=== PATIENT | female | born 1980 | race Caucasian/White ===

== ENCOUNTER 2023-02-18 06:48 | Day surgery (SDC) | payer BC ==
[2023-02-16 16:30] VITALS: BMI 33.9
[2023-02-18] MEDS ORDERED: BUPIVACAINE HCL/EPINEPHRINE/PF 30 ML VIAL IJ ONE (07:11)
[2023-02-18] MEDS ORDERED: EPINEPHrine 1:1,000 1,000 MCG/ML ML ONE (07:12)
[2023-02-18] MEDS ORDERED: VANCOMYCIN 1,000 MG VIAL (RESTRICTED TO ID ONLY) ONE (07:42)
[2023-02-18] MEDS ORDERED: ROPIVACAINE HCL 0.5% 30ML VIAL ONE (08:35)
[2023-02-18] MEDS ORDERED: MIDAZOLAM HCL 2 MG/2 ML SINGLE DOSE VIAL ONE ×2 (08:35→09:18)
[2023-02-18] MEDS ORDERED: DEXAMETHASONE SOD PHOSPHATE/PF 10 MG/ML SDV ONE (08:35)
[2023-02-18] MEDS ORDERED: FENTANYL CITRATE/PF 50 MCG/ML VIAL ONE (08:35)
[2023-02-18] MEDS ORDERED: PROPOFOL 60 ML ONE (09:11)
[2023-02-18] MEDS ORDERED: oxyCODONE HCL 5 MG TABLET PO PRN ×2 (11:28)
[2023-02-18] MEDS ORDERED: ACETAMINOPHEN 1000 MG/100 ML BAG IVPB ONE (11:28)
[2023-02-18] MEDS ORDERED: LACTATED RINGERS SOLUTION 1,000 ML IV SCH (11:30)
[2023-02-18 12:19] VITALS: RESP 20; TEMP 97.5
[2023-02-18 13:58] VITALS: BP 110/68; PULSE 74
== END 2023-02-18 12:55 | disposition home or self-care (01) ==
LOC: FASU 06:48
PROVIDERS: ATTEND Orthopaedic Surgery
PROC: 0RCJ4ZZ Extirpation of Matter from Right Shoulder Joint, Percutaneous Endoscopic Approach (ICD-10-PCS; 2023-02-18)
PROC: 0JBD0ZZ Excision of Right Upper Arm Subcutaneous Tissue and Fascia, Open Approach (ICD-10-PCS; 2023-02-18)
PROC: 0RBJ4ZZ Excision of Right Shoulder Joint, Percutaneous Endoscopic Approach (ICD-10-PCS; principal; 2023-02-18 09:34)
DX: T81.49XA Infection following a procedure, other surgical site, initial encounter (principal); T81.89XA Other complications of procedures, not elsewhere classified, initial encounter; M01.X11 Direct infection of right shoulder in infectious and parasitic diseases classified elsewhere; Y83.8 Other surgical procedures as the cause of abnormal reaction of the patient, or of later complication, without mention of misadventure at the time of the procedure; Y92.9 Unspecified place or not applicable
CPT/HCPCS: 81025; 88300-TC; 88304-TC; 94760

== ENCOUNTER 2023-05-24 10:36 | Day surgery (SDC) | payer BC ==
[2023-05-21 12:28] VITALS: BMI 33.9
[2023-05-24] MEDS ORDERED: PROPOFOL 20 ML ONE (12:59)
[2023-05-24] MEDS ORDERED: ONDANSETRON 4 MG/2 ML VIAL ONE ×2 (12:59→14:36)
[2023-05-24] MEDS ORDERED: MIDAZOLAM HCL 2 MG/2 ML SINGLE DOSE VIAL ONE ×2 (12:59→13:58)
[2023-05-24] MEDS ORDERED: DEXAMETHASONE SOD PHOSPHATE 4 MG/1 ML VIAL ONE ×2 (12:59→14:36)
[2023-05-24] MEDS ORDERED: ROCURONIUM BROMIDE 50 MG/5 ML SYRINGE ONE (13:08)
[2023-05-24] MEDS ORDERED: VANCOMYCIN 1,000 MG VIAL (RESTRICTED TO ID ONLY) ONE (13:09)
[2023-05-24] MEDS ORDERED: SCOPOLAMINE HYDROBROMIDE 1 PATCH PATCH.TD72 ONE (14:18)
[2023-05-24] MEDS ORDERED: BUPIVACAINE HCL/PF 2.5 MG/ML - 30 ML VIAL IJ ONE (14:20)
[2023-05-24] MEDS ORDERED: oxyCODONE HCL 5 MG TABLET PO PRN ×2 (14:58)
[2023-05-24] MEDS ORDERED: ONDANSETRON 4 MG/2 ML VIAL IVPUSH PRN (14:58)
[2023-05-24] MEDS ORDERED: LACTATED RINGERS SOLUTION 1,000 ML IV SCH (15:00)
[2023-05-24] MEDS ORDERED: ACETAMINOPHEN 1000 MG/100 ML BAG IVPB ONE (15:01)
[2023-05-24 16:32] VITALS: PULSE 62; RESP 20; TEMP 97.7
[2023-05-24 16:38] VITALS: BP 104/62
== END 2023-05-24 16:20 | disposition home or self-care (01) ==
LOC: FASU 10:36
PROVIDERS: ATTEND Orthopaedic Surgery
PROC: 0JBD0ZZ Excision of Right Upper Arm Subcutaneous Tissue and Fascia, Open Approach (ICD-10-PCS; principal; 2023-05-24 14:22)
DX: L02.413 Cutaneous abscess of right upper limb (principal)
CPT/HCPCS: 81025; 87070; 87102; 87116; 87186; 87205; 87206; 87210; 88304-TC; 94760

== ENCOUNTER 2023-07-14 07:47 | Day surgery (SDC) | payer BC ==
[2023-07-09 10:09] VITALS: BMI 33.9
[2023-07-14] MEDS ORDERED: MIDAZOLAM HCL 2 MG/2 ML SINGLE DOSE VIAL ONE (10:07)
[2023-07-14] MEDS ORDERED: SCOPOLAMINE HYDROBROMIDE 1 PATCH PATCH.TD72 ONE (10:07)
[2023-07-14] MEDS ORDERED: ACETAMINOPHEN INJECTION 100 ML IVPB ONE (10:07)
[2023-07-14] MEDS ORDERED: oxyCODONE HCL 5 MG TABLET PO PRN (10:16)
[2023-07-14] MEDS ORDERED: ACETAMINOPHEN 325 MG TABLET (FP) PO PRN (10:16)
[2023-07-14] MEDS ORDERED: ONDANSETRON 4 MG/2 ML VIAL IVPUSH PRN (10:16)
[2023-07-14] MEDS ORDERED: LACTATED RINGERS SOLUTION 1,000 ML IV SCH (10:30)
[2023-07-14] MEDS ORDERED: PROPOFOL 20 ML ONE (10:30)
[2023-07-14] MEDS ORDERED: KETOROLAC TROMETHAMINE 30 MG/1 ML VIAL ONE (10:39)
[2023-07-14] MEDS ORDERED: DEXAMETHASONE SOD PHOSPHATE 4 MG/1 ML VIAL ONE (10:39)
[2023-07-14] MEDS ORDERED: TRANEXAMIC ACID 1000 MG/10 ML VIAL ONE (11:12)
[2023-07-14] MEDS ORDERED: FENTANYL CITRATE/PF 50 MCG/ML VIAL ONE (11:46)
[2023-07-14] MEDS: ONDANSETRON 4 MG/2 ML VIAL ONE (11:49)
[2023-07-14 12:53] VITALS: TEMP 97.1
[2023-07-14 14:05] VITALS: BP 102/70; PULSE 80; RESP 18
== END 2023-07-14 13:20 | disposition home or self-care (01) ==
LOC: FASU 07:47
PROVIDERS: ATTEND Orthopaedic Surgery
PROC: 0KB50ZZ Excision of Right Shoulder Muscle, Open Approach (ICD-10-PCS; principal; 2023-07-14 10:50)
DX: M71.011 Abscess of bursa, right shoulder (principal)
CPT/HCPCS: 81025; 87070; 87075; 87102; 87116; 87186; 87205; 87206; 87210; 93005; 94760; J0131